=== PATIENT | female | born 1990 | race Caucasian/White ===

== ENCOUNTER 2016-12-05 21:11 | Inpatient (IN) | payer BC ==
[~2016-12-05] VITALS: Ht 177.8 cm; Wt 88.9 kg
[~2016-12-05 21:11] MED LIST: AMOXICILLIN 50500 MG PO; CIPRODEX 0.3%-7.5 ML OT; CLINDAMYCIN HC300 MG PO; IRON TABLETS325 MG PO; MOTRIN400 MG PO; NORCO 325 MG-51 TAB PO; PERCOCET 5/3251 EACH PO; PHENERGAN 25MG.25 M1 PO; PRENATAL PLUS1 TA1 PO
--- NOTE | 2016-12-05 21:45 | LABOR NOTE ---
Laboring Subjective Subjective Date 12/05/16 Time 214 Subjective: Pt is having regular contractions Laboring Objective Objective NST: Reactive Contractions: q 2-3 minutes Cervical dilation: 6-7 Effacement: 100% Station: 0 Membranes are: Spontaneously Ruptured (with clear fluid) Fetus monitoring? Yes Type: External Laboring Assessment Assessment Progressing? Yes Cephalopelvic disproportion? No Problem List: 1. Delivery normal Status Acute Laboring Plan Plan Anethesia for epidural? Yes Continue to labor down? Yes Plan for ? No Continue to monitor? Yes Start pushing? No at 2140
[2016-12-05 21:51] LABS: HEMOGLOBIN 12.4 g/dL (12.2-16.2); LYMPH # 2.2 K/mm3 (0.7-4.5)
[2016-12-05 21:53] VITALS: BP 133/76
--- NOTE | 2016-12-05 22:31 | Delivery Note ---
Delivery note Delivery date: 12/05/16 Delivery time: 2213 Anesthesia: None Was labor medically induced? No Gestational age in weeks: 38 weeks Days: 6 days Delivery prior to 39 weeks? Yes Justification for delivery: Active labor Sex: female score at one minute: 8 at 5 minutes: 9 Type of suction: bulb AF: Clear LAC or MLE: LEFT labia Delivery procedure: Normal Delivery Delivery of placenta: spontaneous Clinical note She is a 26-year-old 2 para 1 who was 38 and 6 weeks gestational age. She ruptured her membranes at home on the evening of December 05, 2016. On arrival here she was found to be 67 cm dilated. She progressed to full dilation and delivered spontaneously a liveborn female child at 10:14 PM in the evening of December 05, 2016. Undelivered the head the anterior shoulder rapidly delivered followed by the rest of the infant's body atraumatically. The oropharynx and nasopharynx were bulb suctioned. The baby cried spontaneously. We allowed the cord to continue to pulsate for about a minute and then doubly clamped cord and cut the cord. The infant was then placed on the mother's abdomen for further care. We noted at this time that there was a true knot in the cord. It was loose. We then obtained cord blood as well as cord pH. The patient received IV oxytocin. Using gentle traction on the cord and countertraction on the fundus I was able to easily deliver the placenta intact at 10:17 PM. It had a normal three-vessel cord. She had a small LEFT labial laceration that was repaired with a single interrupted 3-0 Vicryl repeat suture after infiltrating with approximately 5 mL of 1 percent Xylocaine. She has AB positive blood, she is rubella immune and was group B streptococcus negative. She plans to breast-feed. Her rectangular tank cooper is Dr. Pittman. Estimated blood loss was approximately 400 mL. at 9117
[2016-12-05 22:46] LABS: ABO BLOOD TYPE AB; RH BLOOD TYPE POSITIVE
--- NOTE | 2016-12-06 00:46 | ACUTE CARE PROGRESS NOTE (QUA) ---
Progress Notes Subjective Date 12/06/16 Time 0045 Note She had passed a number of large clots when she got up to the bathroom. On examination her uterus is well contracted now. I did try to express clots within the uterus but there was nothing LEFT inside. The uterus is extremely firm and below the umbilicus. She just has a small amount of ooze. Patient/family reports: feeling better, no complaints Objective Findings Last VS-Temp:98.0 B/P:133/76 Pulse:81 Resp:20 SaO2: Last weight lbs:196 oz:0 K.905 Method:Floor Scales Exam General appearance: normal appearance, alert, awake, no acute distress Reviewed: vital signs Assessment/Plan Problem List 1. Delivery normal Status: Acute Patient condition Stable Plan: continue current care This inpt stay is expected to cross 2 MNs from start of care Yes Comments: We will get a complete blood count in the morning. She is doing well and she is stable. Her bleeding has now settled. We will give her 1 dose of Hemabate and keep the oxytocin going overnight. at 0046
[2016-12-06 05:38] LABS: HEMOGLOBIN 11.5 g/dL (12.2-16.2)
[2016-12-06 08:31] VITALS: BP 106/74
--- NOTE | 2016-12-06 09:53 | ACUTE CARE PROGRESS NOTE (QUA) ---
Progress Notes Subjective Date 12/06/16 Time 0952 Note She continues to do well. She is eating and drinking and ambulating. Her lochia is now normal. She is well contracted. She denies any pain. She is breast- feeding. Patient/family reports: feeling better, no complaints Objective Findings Last VS-Temp:98.0 B/P:106/74 Pulse:84 Resp:20 SaO2: Last weight lbs:196 oz:0 K.905 Method:Floor Scales Laboratory Tests 12/06/16 0430: Hgb 11.5 L, Hct 32.2 L 12/05/16 2230: Cord Blood pH 7.55 H 12/05/16 2130: MCH 33.4 H 12/05/16 2130: WBC 10.0, RBC 3.71 L, Hgb 12.4, Hct 36.1 L, MCV 97.1, RDW 12.8, Plt Count 217, MPV 6.1 L, Gran % 71.3, Gran # 7.2, Lymphocytes % 22.0, Monocytes % 5.6, Eosinophils % 0.8, Basophils % 0.2, Lymphocytes # 2.2, Monocytes # 0.6, Eosinophils # 0.1, Basophils # 0.0, PUBS MCHC 34.4, Antibody Screen NEGATIVE, Miscellaneous Test POSITIVE Exam General appearance: normal appearance, alert, awake, no acute distress Reviewed: vital signs, lab results Assessment/Plan Problem List 1. Delivery normal Status: Acute Patient condition Improving, Stable Plan: continue current care This inpt stay is expected to cross 2 MNs from start of care Yes Comments: She is doing very well and we'll plan to send her home tomorrow. at 0915
[2016-12-06 19:51] VITALS: BP 118/64
[2016-12-07 08:20] VITALS: BP 137/83
--- NOTE | 2016-12-07 10:38 | ACUTE CARE PROGRESS NOTE (QUA) ---
Progress Notes Subjective Date 12/07/16 Time 1038 Note She continues to do well. She is eating and drinking and ambulating. She is breast-feeding. Her lochia is normal. Patient/family reports: feeling better, no complaints Objective Findings Last VS-Temp:98.0 B/P:118/64 Pulse:81 Resp:20 SaO2: Last weight lbs:196 oz:0 K.905 Method:Floor Scales Exam General appearance: normal appearance, alert, awake, no acute distress Reviewed: vital signs, lab results Assessment/Plan Problem List 1. Delivery normal Status: Acute Patient condition Improving, Stable Plan: continue current care, initiate discharge plan This inpt stay is expected to cross 2 MNs from start of care Yes Comments: She is doing very well and we'll plan to send her home today. at 1038
--- NOTE | 2016-12-07 10:42 | Discharge Summary ---
Discharge Summary Admission date: 12/05/16 Discharge date: 12/07/16 Discharge diagnoses: Term , spontaneous vaginal delivery, spontaneous rupture of membranes Clinical note: She is a 26-year-old 3 now para 2 aborta 1 who was 38 and 6 weeks gestational age. She ruptured her membranes at home and came in in active labor. Course in hospital: On arrival she was found be 6-7 cm dilated. She subsequently progressed rapidly to full dilation and delivered spontaneously a liveborn female child at 10:14 PM in the evening of December 05, 2016. The baby weighed 7 lbs. 14 oz. and was 19 inches long. She had Apgars of 8 at 1 minute and 9 at 5 minutes. There was a true knot in the cord. It was loose. She had a small LEFT labial tear. She has AB positive blood, she is rubella immune and was group B streptococcus negative. Laboratory Tests 12/06/16 0430: Hgb 11.5 L, Hct 32.2 L 12/05/16 2230: Cord Blood pH 7.55 H 12/05/16 2130: MCH 33.4 H 12/05/16 2130: WBC 10.0, RBC 3.71 L, Hgb 12.4, Hct 36.1 L, MCV 97.1, RDW 12.8, Plt Count 217, MPV 6.1 L, Gran % 71.3, Gran # 7.2, Lymphocytes % 22.0, Monocytes % 5.6, Eosinophils % 0.8, Basophils % 0.2, Lymphocytes # 2.2, Monocytes # 0.6, Eosinophils # 0.1, Basophils # 0.0, PUBS MCHC 34.4, Antibody Screen NEGATIVE, Miscellaneous Test POSITIVE Plans for ongoing care: She is discharged home to follow-up with me in approximately 2 weeks' time. Discharge medications She'll continue with her vitamins and iron. She will take ibuprofen. She was given a prescription for Percocet 5/325, 30 tablets. DC/follow-up instructions She was given the usual instructions with respect to limiting her activity, driving and sexual activity. Condition at discharge Stable and improved at 1042
[2016-12-07] MEDS ORDERED: PERCOCET 5/3251 EACH PO (10:43)
== END 2016-12-07 11:20 | disposition home or self-care (01) | DRG 775 ==
LOC: OBOUT 21:11 → OB 21:12 → OBOUT 21:13 → OB 21:17
PROVIDERS: Nurse Practitioner Obstetrics & Gynecology
PROC: 0HQ9XZZ Repair Perineum Skin, External Approach (ICD-10-PCS; principal; 2016-12-05)
PROC: 10E0XZZ Delivery of Products of Conception, External Approach (ICD-10-PCS; 2016-12-05)
DX: O70.0 First degree perineal laceration during delivery (principal); O69.2XX0 Labor and delivery complicated by other cord entanglement, with compression, not applicable or unspecified; Z3A.38 38 weeks gestation of pregnancy; Z37.0 Single live birth
CPT/HCPCS: J2405